=== PATIENT | female | born 1945 | race Caucasian/White ===

== ENCOUNTER 2018-10-06 07:24 | Inpatient (IN) | payer MEDICARE, SELFPAY ==
[2018-09-22 08:29] VITALS: BMI 23.6
[2018-10-06] VITALS (18 sets, daily range): BP systolic 110–146; BP diastolic 61–82; PULSE 62–85; RESP 8–21; TEMP 36.3–37.1; O2SAT 93–99; BMI 23.6
[2018-10-06] MEDS: LACTATED RINGERS 1,000 ML 42 ML IV ×3 (08:46→16:11)
--- NOTE | 2018-10-06 09:47 | PM.PREOP ---
Pre-operative Note Interval Note History & Physical reviewed/Exam performed by Physician: Yes Changes to H&P: No
[2018-10-06] MEDS: ALBUTEROL 2.5 MG/3 ML NEB (ADULT) INH (10:26)
[2018-10-06] MEDS: CEFAZOLIN 2 GM/100 ML FROZ.PIGGY IV ×3 (11:11→23:19)
--- NOTE | 2018-10-06 11:42 | SUR.OPER ---
Prone on spine table, head in foam head support, padded chest and pelvic supports, gel pad at knees, lower legs supported by pillows; nipples, genitalia and toes free of pressure, arms secured on foam padded arm boards at <90 degrees abduction. Tape over blanket at thigh secured to table.
[2018-10-06] MEDS: SODIUM CHLORIDE 0.9% 1,000 ML, GENTAMICIN 80 MG IRR (11:52)
[2018-10-06] MEDS: THROMBIN (BOVINE) 5,000 UNIT VIAL 5000 UNIT TOP (13:33)
[2018-10-06] MEDS: BUPIVACAINE 0.5% (PF) 4 ML, MORPHINE-PF 4 MG, BUTORPHANOL 1 MG, fentaNYL 100 MCG INJ (14:23)
[2018-10-06] MEDS: VANCOMYCIN 1,000 MG VIAL 1000 MG TOP (14:25)
--- NOTE | 2018-10-06 15:30 | DI.RAD.S_ITS ---
PROCEDURE: XR LUMBAR SPINE 2-3V INDICATIONS: L2-3, L3-4, L4-5 XLIF...L5-S1 TLIF TECHNIQUE: 3 views of the lumbar spine were acquired. COMPARISON: None. FINDINGS: Bones: 5 [id number] vertebrae are present. There is posterior lumbar fusion from L2-S1. Intervertebral spacer is present at L5-S1. Hardware appears intact and there is good anatomic alignment. No vertebral body compression fractures. No suspicious bony lesions. Soft tissues: Overlying bowel gas pattern is normal. No suspicious soft tissue calcifications. IMPRESSION: Posterior fusion as above. Dictated by: Meri Lawrence M.D. on 10/06/2018 at 15:44 Approved by: Meri Lawrence M.D. on 10/06/2018 at 15:45
--- NOTE | 2018-10-06 15:36 | SUR.OPER ---
Patient's bowden tube was under her left thigh while in prone position, so immediately postoperative, there is a red indentation remaining on her thigh.
--- NOTE | 2018-10-06 15:38 | PM.OP.1 ---
Operative Date/Time/Diagnoses Date of procedure: 10/06/18 Time of procedure: 15:38 Pre-op diagnosis: Lumbar stenosis with radiculopathy Lumbar spondylolisthesis Lumbar scoliosis Post-op diagnosis: same Procedure & Clinicians Procedure: L2-3, L3-4, L4-5 anterior fusion with cages L2-3, L3-4, L4-5 posterior fusion L5-S1 TLIF (post/post innerbody fusion) with cage L2 through S1 screws Iliac crest bone graft aspirate L4-5 laminectomy Use of microscope Placement of epidural catheter Same procedure as scheduled: Yes Indications: [age] year old female with intractable pain from stenosis. They had failed conservative management and requested operative intervention. Risks and benefits of surgery were discussed and appropriate consents were obtained. Surgeon: Tomer Leyva Medication Aide: Monserrat Tapia Anesthesia Type: General Operative Notes Findings: None Closure Type: primary Prosthetic devices, grafts, tissues, transplants, or devices: NuVasive XLIF cages and MAS Reline screws Globus Rise cage Applied: catheter Estimated Blood Loss (mL): 100 Blood products transfused: none Procedure in detail: Patient was brought to the operating room and intubated on the table. Time-out was performed. They were then rolled over to the lateral decubitus position with the [id number]. The table was bent and they were taped down in the correct position. X-rays were taken to confirm a true AP and lateral. Preoperative antibiotics were given. The left flank was prepped and draped in standard sterile fashion. Using fluoroscopy, a 3 cm incision was made above the iliac crest. We bluntly dissected down with Metzenbaum scissors and split the 3 abdominal muscle layers. We dissected out the retroperitoneal space and using finger guidance, brought our 1st dilator down to the psoas muscle. Using neuromonitoring and fluoroscopy, we placed it through the psoas onto the L4-5 disc space in an anterior position and gradually pulled the dilator posteriorly along the disc space. We placed our guidewire and measured our depth for the retractor. We then dilated with the next 2 dilators and then placed our retractor over the dilators. Position was confirmed with fluoroscopy and the retractor was locked down to the bar. We opened up the retractor and checked with neuro monitoring. We then placed the bere and again checked with neuro monitoring. The retractor was opened further and the ALL retractor was placed. An annulotomy was performed. We then performed a complete diskectomy with ring curette, pituitary, box osteotome. A Mcdaniel was advanced across the disc space under fluoroscopy to release the lateral annulus on the opposite side. We then used sequentially larger trials and confirmed under fluoroscopy. An XLIF cage was packed with Osteocel bone graft and impacted into the L4-5 disc space with fluoroscopy for the anterior fusion at this level. The wound was irrigated. The retractor was closed down. The bere was removed. We carefully removed the retractor with direct visualization to make sure there was no neurovascular or abdominal injury. We then moved up to the L3-4 level. Again we dilated through the psoas, placed our retractor, performed a complete diskectomy with lateral release, trialed and placed another cage with bone graft for the anterior fusion at L3-4. The retractor was carefully removed under direct visualization. We then moved up to the L2-3 level. Again we dilated through the psoas, placed a retractor, performed a complete diskectomy with lateral release, trialed, and placed another cage with bone graft for the anterior fusion at L2-3. The retractor was carefully removed under direct visualization. Final x-rays were taken. The muscle fascia was closed, superficial tissue was closed. The skin was closed. Sterile dressing was placed. The patient was then rolled over on the well-padded prone position on the Michael table. Using fluoroscopy for localization, a 15 cm incision was made to the right of the midline. Bovie used to come down to split the lumbodorsal fascia. We then percutaneously placed Jamshidi needles down the right pedicles of L2, L3, L4, L5, and S1 using fluoroscopy and neural monitoring. These were switched out over guidewires, tapped and then the appropriate screw shanks were placed. We opened up our retractors at L5-S1. The posterolateral gutter and medially were cleared out. A bur was used to decorticate the sacral ala and transverse process of L5. We then brought in the microscope. A laminectomy was performed at L5-S1 with a bur and Kerrison rongeurs. We carefully depressed the dura to reach to the opposite side and decompress the entire central canal. We cleared out the neural foramen. We had to do a near complete facetectomy to open up the foramen. In the end the ball probe could be placed cephalad and caudally across to the opposite side in the foramen and everything was opened. We then began the prep for the TLIF. The dura was carefully retracted medially and the disc was prepped. A scalpel used to perform an annulotomy. We then used a combination of paddles, Shonda, pituitaries, and curettes to perform a complete diskectomy at L5-S1. We packed the bone graft into the disc space. The globus Rise 10x30 mm cage was placed and expanded under fluoroscopic visualization. This completed the posterior interbody fusion portion of the TLIF at L5S1. We then moved the retractor up to L4-5. The soft tissue in the gutter were cleared off and the L4 transverse process was decorticated. We then performed a laminectomy at L4-5. There was a large facet cyst that had to be carefully dissected off the dura. We carefully depress the dura and reach to the opposite side to decompress the left side of the canal. In the end the ball probe could be swept cephalad, caudally, and out the neural foramen and everything was open. We had such good indirect foraminal decompression and height islam with our anterior procedure, that I did not think we needed to do the laminectomies at the upper 2 levels. Wound was irrigated. An epidural catheter was primed with 4mL of 0.5% bupivacaine, 100 mcg fentanyl, 4 mg Duramorph, 1 mg Stadol. The dura was depressed under the cephalad lamina with a ball probe and the epidural catheter was gently advanced 6 cm cephalad. We then continued our will see muscle-splitting approach and exposed the transverse processes of L4 and L3 and decorticated these with a bur as well. The wound was again irrigated. A small stab incision was made over the PSIS and a Jamshidi needle was placed into the iliac crest and several mL of bone marrow was aspirated. This was mixed with our locally harvested bone graft as well as the remaining Osteocell and placed in the posterolateral gutter for fusion at L2-3, L3-4, L4-5, and the posterolateral portion of the L5-S1 TLIF. We placed on the screw heads and then measured and placed a lance and locked down the set screws. The fascia was then closed. The epidural was then injected without resistance. The catheter was pulled and we closed more over the fascia. We then went to the left-hand side. Another 15 cm longitudinal incision was made. We split down through the fascia. We then percutaneously placed a Jamshidi needles on the left from L2 through S1 and then change him over to guidewires and tapped and placed our screws under fluoroscopic guidance and also using neuro monitoring. We measured and placed a lance and locked down. Final x-rays were taken. The wound was irrigated. The fascia was closed. Vancomycin powder was placed in the wounds. The superficial and skin were closed. Sterile dressing was placed. The patient was then rolled over, extubated, brought to the recovery room with no complications. Complications: none Condition: stable Disposition: PACU Plan for aftercare: Inpatient. Up with physical therapy.
--- NOTE | 2018-10-06 15:47 | P.OP_ITS ---
Operative Date/Time/Diagnoses Date of procedure: 10/06/18 Time of procedure: 15:38 Pre-op diagnosis: Lumbar stenosis with radiculopathy Lumbar spondylolisthesis Lumbar scoliosis Post-op diagnosis: same Procedure & Clinicians Procedure: L2-3, L3-4, L4-5 anterior fusion with cages L2-3, L3-4, L4-5 posterior fusion L5-S1 TLIF (post/post innerbody fusion) with cage L2 through S1 screws Iliac crest bone graft aspirate L4-5 laminectomy Use of microscope Placement of epidural catheter Same procedure as scheduled: Yes Indications: [age] year old female with intractable pain from stenosis. They had failed conservative management and requested operative intervention. Risks and benefits of surgery were discussed and appropriate consents were obtained. Surgeon: Tomer Leyva Tugboat Engineer: Monserrat Tapia Anesthesia Type: General Operative Notes Findings: None Closure Type: primary Prosthetic devices, grafts, tissues, transplants, or devices: NuVasive XLIF cages and MAS Reline screws Globus Rise cage Applied: catheter Estimated Blood Loss (mL): 100 Blood products transfused: none Procedure in detail: Patient was brought to the operating room and intubated on the table. Time-out was performed. They were then rolled over to the lateral decubitus position with the [id number]. The table was bent and they were taped down in the correct position. X-rays were taken to confirm a true AP and l ateral. Preoperative antibiotics were given. The left flank was prepped and draped in standard sterile fashion. Using fluoroscopy, a 3 cm incision was made above the iliac crest. We bluntly dissected down with Metzenbaum scissors and split the 3 abdominal muscle layers. We dissected out the retroperitoneal space and using finger guidance, brought our 1st dilator down to the psoas muscle. Using neuromonitoring and fluoroscopy, we placed it through the psoas onto the L4-5 disc space in an anterior position and gradually pulled the dilator posteriorly along the disc space. We placed our guidewire and measured our depth for the retractor. We then dilated with the next 2 dilators and then placed our retractor over the dilators. Position was confirmed with fluoroscopy and the retractor was locked down to the bar. We opened up the retractor and checked with neuro monitoring. We then placed the bere and again checked with neuro monitoring. The retractor was opened further and the ALL retractor was placed. An annulotomy was performed. We then performed a complete diskectomy with ring curette, pituitary, box osteotome. A Mcdaniel was advanced across the disc space under fluoroscopy to release the lateral annulus on the opposite side. We then used sequentially larger trials and confirmed under fluoroscopy. An XLIF cage was packed with Osteocel bone graft and impacted into the L4-5 disc space with fluoroscopy for the anterior fusion at this level. The wound was irrigated. The retractor was closed down. The bere was removed. We carefully removed the retractor with direct visualization to make sure there was no neurovascular or abdominal injury. We then moved up to the L3-4 level. Again we dilated through the psoas, placed our retractor, performed a complete diskectomy with lateral release, trialed and placed another cage with bone graft for the anterior fusion at L3-4. The retractor was carefully removed under direct visualization. We then moved up to the L2-3 level. Again we dilated through the psoas, placed a retractor, performed a complete diskectomy with lateral release, trialed, and placed another cage with bone graft for the anterior fusion at L2-3. The ret ractor was carefully removed under direct visualization. Final x-rays were taken. The muscle fascia was closed, superficial tissue was closed. The skin was closed. Sterile dressing was placed. The patient was then rolled over on the well-padded prone position on the Michael table. Using fluoroscopy for localization, a 15 cm incision was made to the right of the midline. Bovie used to come down to split the lumbodorsal fascia. We then percutaneously placed Jamshidi needles down the right pedicles of L2, L3, L4, L5, and S1 using fluoroscopy and neural monitoring. These were switched out over guidewires, tapped and then the appropriate screw shanks were placed. We opened up our retractors at L5-S1. The posterolateral gutter and medially were cleared out. A bur was used to decorticate the sacral ala and transverse process of L5. We then brought in the microscope. A laminectomy was performed at L5-S1 with a bur and Kerrison rongeurs. We carefully depressed the dura to reach to the op posite side and decompress the entire central canal. We cleared out the neural foramen. We had to do a near complete facetectomy to open up the foramen. In the end the ball probe could be placed cephalad and caudally across to the opposite side in the foramen and everything was opened. We then began the prep for the TLIF. The dura was carefully retracted medially and the disc was prepped. A scalpel used to perform an annulotomy. We then used a combination of paddles, Shonda, pituitaries, and curettes to perform a complete diskectomy at L5-S1. We packed the bone graft into the disc space. The globus Rise 10x30 mm cage was placed and expanded under fluoroscopic visualization. This completed the posterior interbody fusion portion of the TLIF at L5S1. We then moved the retractor up to L4-5. The soft tissue in the gutter were cleared off and the L4 transverse process was decorticated. We then performed a laminectomy at L4-5. There was a large facet cyst that had to be carefully dissected off the dura. We carefully depress the dura and reach to the opposite side to decompress the left side of the canal. In the end the ball probe could be swept cephalad, caudally, and out the neural foramen and everything was open. We had such good indirect foraminal decompression and height pentecostal with our anterior procedure, that I did not think we needed to do the laminectomies a t the upper 2 levels. Wound was irrigated. An epidural catheter was primed with 4mL of 0.5% bupivacaine, 100 mcg fentanyl, 4 mg Duramorph, 1 mg Stadol. The dura was depressed under the cephalad lamina with a ball probe and the epidural catheter was gently advanced 6 cm cephalad. We then continued our will see muscle-splitting approach and exposed the transverse processes of L4 and L3 and decorticated these with a bur as well. The wound was again irrigated. A small stab incision was made over the PSIS and a Jamshidi needle was placed into the iliac crest and several mL of bone marrow was aspirated. This was mixed with our locally harvested bone graft as well as the remaining Osteocell and placed in the posterolateral gutter for fusion at L2-3, L3-4, L4-5, and the posterolateral portion of the L5-S1 TLIF. We placed on the screw heads and then measured and placed a lance and locked down the set screws. The fascia was then closed. The epidural was then injected without resistance. The catheter was pulled and we closed more over the fascia. We then went to the left-hand side. Another 15 cm longitudinal incision was made. We split down through the fascia. We then percutaneously placed a Jamshidi needles on the left from L2 through S1 and then change him over to guidewires and tapped and placed our screws under fluoroscopic guidance and also using neuro monitoring. We measured and placed a lance and locked down. Final x- rays were taken. The wound was irrigated. The fascia was closed. Vancomycin powder was placed in the wounds. The superficial and skin were closed. Sterile dressing was placed. The patient was then rolled over, extubated, brought to the recovery room with no complications. Complications: none Condition: stable Disposition: PACU Plan for aftercare: Inpatient. Up with physical therapy.
[2018-10-06] MEDS: HYDROMORPHONE 2 MG INJ 0.5 MG IV ×4 (15:56→16:34)
[2018-10-06] MEDS: hydrOXYzine 50 MG/ML INJ 25 MG IM (16:04)
[2018-10-06] MEDS: LORazepam 2 MG/ML SYRINGE 0.25 MG IV (16:13)
--- NOTE | 2018-10-06 16:44 | SUR.PHASEI ---
o2sat dropping to 88-93% RA while dozing, 2lNC applied, sats 94%.
--- NOTE | 2018-10-06 17:34 | SUR.PHASEI ---
Pt transferred to the floor with o2 monitor. Report to Tyra. VS stable. IV saline locked. DRSGs checked with RN. Belongings bag with patient.
[2018-10-06] MEDS: LACTATED RINGERS 1,000 ML 125 ML IV (18:03)
[2018-10-06] MEDS: HYDROMORPHONE 0.5 MG INJ IV (18:04)
[2018-10-06] MEDS: hydrOXYzine pamoate 25 MG CAPSULE PO (20:19)
[2018-10-06] MEDS: DOCUSATE 100 MG CAPSULE PO (20:19)
[2018-10-06] MEDS: SENNOSIDES 8.6 MG TABLET 17.2 MG PO (20:19)
[2018-10-06] MEDS: HYDROCODONE/ACET 5/325 TABLET 2 TAB PO (20:20)
[2018-10-06] MEDS: GABAPENTIN 300 MG CAPSULE PO (20:22)
--- NOTE | 2018-10-06 21:31 | PC.ADMIT ---
1734- pt arrived to floor Admission Note: Pt awake and appropriate. Pt oriented to room and hospital procedures. Pt uses call light. not yet up. still dulled sensation to t9 and below. discussed and educated pt about what this means. scds applied to prashanth calf. 1899- pt up with 2 assistance for first time. needs one assist with walker to BR. did very well. encouraged small steps and pointing toe. discussed measures to use walker as well. voided adequately. did very well up. denied sob.dizziness/etc. will continue to monitor. pt calls appropriately.
--- NOTE | 2018-10-06 22:06 | PC.ADMIT ---
Admission Note: pt arrived to floor at 1735- pt sleepy. arouses but takes her time to answer questions. pt groggy stil. Pt complains of back pain. given meds pre MAR. prashanth Foot SCDs on. vss. oriented to room and hospital procedures. bed alarm on. side rails upx3. for pt safety. kal patent. 1899-pt ate some dinner. states she eats whenever she feels hungry. states she may want a snack later on. denies nausea. prn pain meds given. will continue to monitor. pulse ox on. 99-95% on room air.
[2018-10-07] VITALS (7 sets, daily range): BP systolic 102–122; BP diastolic 57–69; PULSE 70–76; RESP 16–17; TEMP 37.1–37.4; O2SAT 93–99
--- NOTE | 2018-10-07 02:01 | PC.NURSE ---
Patient is alert and oriented and very talkative once awake. Is deaf in right ear. Breath sounds CTA with RA sat of 99%; on continuous pulse oximetry. HRR. Denies nausea. BT hypoactive; denies flatus. Indwelling catheter is patent with clear reyna urine in bag. Able to turn, log rolling, onto side and tolerated well but preferring to lie on back. States pain is 3/10 and tolerable; declines offer of pain medication. Dressings to back and left hip is CDI. CMS is intact. Wearing bilateral foot SCD's. Reports 1 fall in past 3 months so is high risk for falling and bed alarm is activated.
[2018-10-07] MEDS: LACTATED RINGERS 1,000 ML 125 ML IV (03:00)
[2018-10-07 06:16] LABS: Hematocrit 34.9 % (36-46); Hemoglobin 12.1 g/dL (12.0-16.0)
[2018-10-07] MEDS: CEFAZOLIN 2 GM/100 ML FROZ.PIGGY IV (06:45)
--- NOTE | 2018-10-07 08:03 | PM.PNPO.1 ---
Subjective Date Patient Seen: 10/07/18 Time Patient Seen: 08:03 Interval history: She is doing very well. Some pain in the back. The right leg symptoms are feeling noticeably better. Her left leg feels heavy in the thigh. Exam Vital Signs (past 8 hours): - 10/07/18 00:04 10/07/18 05:27 Temperature 99.3 F 98.8 F Pulse Rate 75 76 Respiratory Rate 16 16 Blood Pressure 115/67 116/68 Pulse Oximetry 99 95 Oxygen Delivery Method Room Air Oxygen Flow Rate 0 Const Orientation: alert and oriented x3 Back/Spine/Pelvis Other: CDI. 5/5 motor both lower extremities except for 4/5 left hip flexor Objective Labs Result Diagrams: 10/07/18 05:43 Labs: Laboratory Results - last 24 hr 10/07/18 05:43 Hgb 12.1 Hct 34.9 L Assessment & Plan Post-op Postoperative Procedures Operation Date: 10/06/18 10:15 Actual Procedures Side Surgeon p L2-3,L3-4,L4-5,L5-S1 Laminictomy & Ant/Post Instru fusion w/bone graft Tomer Leyva MD She is doing very well. I explained the heaviness and weakness into the left hip flexor is coming from the psoas splitting approach and should resolve over the next several weeks. Mobilize today with physical therapy. Quality VTE Deep Vein Thrombosis/Pulmonary Embolism Present on Admission: No
[2018-10-07] MEDS: HYDROCODONE/ACET 5/325 TABLET 1 TAB PO ×2 (08:21→16:39)
[2018-10-07] MEDS: CELECOXIB 200 MG CAPSULE PO ×2 (08:22→21:37)
[2018-10-07] MEDS: DOCUSATE 100 MG CAPSULE PO ×2 (08:22→21:37)
[2018-10-07] MEDS: FLUTICASONE/SALMETEROL 250/50 14 PUFF DISKUS INH ×2 (08:45→21:18)
--- NOTE | 2018-10-07 11:30 | OT.IP.EVAL ---
Current Diagnoses Other forms of scoliosis, lumbar region (10/06/18) Spondylolisthesis, lumbar region (10/06/18) Spinal stenosis, lumbar region with neurogenic claudication (10/06/18) Surgery Performed Operation Date: 10/06/18 10:15 Actual Procedures p L2-3,L3-4,L4-5,L5-S1 Laminictomy & Ant/Post Instru fusion w/bone graft - Tomer Leyva MD Past Medical History (Last Updated 09/22/18 @ 09:17 by Esther Chadwick RN) Back pain (Acute) COPD (chronic obstructive pulmonary disease) (Acute) Coma (Acute) Hypoglycemia (Acute) Surgical History (Last Updated 09/22/18 @ 08:34 by Esther Chadwick RN) History of surgery of head (Acute) Hx of cervical spine surgery (Acute ~01/2018) Occupational Therapy Inpatient Evaluation/Re-Eval M1 PT/OT-IP Prior Functional Status Start: 10/07/18 12:36 Freq: NEEDED Status: Active Protocol: Document 10/07/18 11:30 PJM (Rec: 10/07/18 16:16 PJ [id number]) Medical Review Prior Functional Status Medical History Reviewed Yes Diet/Fluid Consistency Regular Communication Able to make needs known, no communication deficits noted Mobility and Gait Pt was independent at home and community without using AD. Was able to amb approx 300 ft a day and went to visit families in [place] sometimes. She also drives Activities of Daily Living and IADL's Pt was independent with ADLs and IADLs without AD Prior Functional Level (Other details) Pt has 2 small dogs. Social History Household Members none Living Arrangements House Number of Floors (Floors) One Floor Number of Stairs To Enter/Railing? 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 M2 OT-IP Current Condition Start: 10/07/18 16:02 Freq: Status: Active Protocol: Document 10/07/18 11:30 PJM (Rec: 10/07/18 16:16 PJ [email or web address]) Occupational Therapy Current Condition Current Condition Evaluation Date 10/07/18 Treatment Diagnosis decreased self care, mobility s/p elective L2-5 ant/post fusion, L5-S1 TLIF Diagnosis Onset Date 10/06/18 Post Operative Precautions Lumbar Precautions Log Roll No Twisting Limit Bending Lifting Restriction of 10 lbs Gait Belt above Incisional Area M3 OT- IP Subjective and Pain Start: 10/07/18 16:02 Freq: Status: Active Protocol: Document 10/07/18 11:30 PJM (Rec: 10/07/18 16:16 PJ [email or web address]) OT- Subjective Occupational Therapy Visit Type Type Initial Evaluation Visit Start Time 11:03 Visit Stop Time 11:30 Total Visit Minutes 27 Occupational Therapy Visit Comments Patient Comments I plan to be very careful because I don't ever want to have back surgery again. Patient/Caregiver Goals to go home and return to independent living alone OT Pain Assessment Pain When Pain Assessed After Treatment Pain Present Pain Present Pain Reported Location Lower Back Intensity 6 Scale Used Numeric (1 - 10) Description Aching Acute Pain Behaviors Guarding Management Techniques Distraction Re-positioning Timing of Activity with Medications M4 OT- IP ADL's Start: 10/07/18 16:02 Freq: Status: Active Protocol: Document 10/07/18 11:30 PJM (Rec: 10/07/18 16:16 [facility] [email or web address]) OT [id number] General Evaluation Self-Feeding Ability Independent OT ADL-Grooming General Evaluation Grooming Ability Standby Assistance Comments OT Grooming Comments after set up in chair OT ADL-Oral Care General Eval Oral Care Ability Standby Assistance Comments Oral Care Comments after set up in chair OT ADL-Dressing General Eval Upper Body Dressing Ability Independent Lower Body Dressing Ability Moderate Assistance Areas Needing Assistance Underpants/Brief Socks Shoes Assistive Devices Dressing Assistive Devices Master Pilot Comments OT Dressing Comments hand candle molder provided at pt request, she adamantly declines sock aid and long shoe horn as she never wears socks and wears [place] slip on shoes only OT ADL-Toileting General Evaluation Toileting Ability Total Assistance Areas Needing Assistance Empty Catheter or Colostomy Comments OT Toileting Comments to be assessed, bowden still in place OT ADL-Bathing Bathing Type Bathing Type Shower Devices Bathing Equipment Long Handled Sponge or Bookkeepers Supervisor Held Shower Sprayer Comments OT Bathing Comments to be assessed, pt usually stands to shower M5 OT- IP IADL's Start: 10/07/18 16:02 Freq: Status: Active Protocol: Document 10/07/18 11:30 PJM (Rec: 10/07/18 16:16 PJM [email or web address]) OT-Instrumental Activities of Daily Living Deficits IADL Deficits Identified Deficits Home Safety Awareness Awareness of Need for Assistance at Home Good Awareness Ability to Problem Solve Emergency Able to Problem Solve Situations Medication Management Medication Management No Deficits Identified Money Management Money Management No Deficits Identified Meal Preparation Meal Preparation Caregiver Provides Assist Meal Preparation Comments friend can assist with grocery shopping PRN, pt stocked her freezer with easy to prepare foods prior to admit Pole Peeling Machine Operator Pole Peeling Machine Operator Caregiver Provides Assist Pole Peeling Machine Operator Comments friend to assist PRN per pt Driving Driving Caregiver Provides Assist Driving Comments friend to assist PRN per pt M6 OT- IP Functional Cognition Start: 10/07/18 16:02 Freq: Status: Active Protocol: Document 10/07/18 11:30 PJM (Rec: 10/07/18 16:16 PJM [email or web address]) Cognitive Factors Limiting Selfcare Function Cognitive Ability Level of Alertness Alert Patient Orientation Name Age Birthday Month Date Year Day of Week Place Situation Attention Span Ability Capable of Focused Attention Capable of Sustained Attention Ability to Follow Commands Able to Follow One Step Commands Memory Description No Deficits Noted Safety Awareness Decreased Ability to Apply Precautions Underestimates Need for Assistance Problem Solving Ability Needs Assist to Identify Solutions Cognitive Comments Cognitive Assessment Comments Pt has some decreased insight re: how lumbar precautions will affect her ability to be independent while home alone. She tends to underestimate her need for assistance. OT- Vision and Hearing OT- Hearing Assessment OT- Hearing Assessment WFL OT- Vision Assessment Visual Acuity WFL M7 OT- IP Mobility and Balance Start: 10/07/18 16:02 Freq: Status: Active Protocol: Document 10/07/18 11:30 PJM (Rec: 10/07/18 16:16 PJ [email or web address]) OT-Transfer Assessment Comments Mobility Comments Pt seen in recliner this session just after P.T. finished. See P.T. notes. OT- Gait Assessment Comments Gait Ability Comments Pt seen in recliner this session just after P.T. finished. See P.T. notes. OT- Balance Assessment Comments Other Balance Tests/Deviations/Treatment see P.T. notes : M8 OT- IP Objective Assessments Start: 10/07/18 16:02 Freq: Status: Active Protocol: Document 10/07/18 11:30 PJM (Rec: 03/27/19 16:16 PJM [email or web address]) OT Gross Range of Motion Upper Extremity Range of Motion Assessment Within Functional Limits OT Strength Upper Extremity Strength Assessment Within Functional Limits OT- Coordination Assessment Comments Coordination Comments BUE WFL for self care OT-Muscle Tone Assessment Muscle Tone WNL Yes OT Sensation Assessment Comments Summary Comments BUE WNL per pt Edema Edema Absent M9 OT- IP Assessment and Plan Start: 10/07/18 16:02 Freq: Status: Active Protocol: Document 10/07/18 11:30 PJM (Rec: 10/07/18 16:16 PJM [email or web address]) OT Summary Assessment and Plan Potential Rehabilitation Potential Good Analytic Complexity at Evaluation Low Summary OT Impairments Pain Functional Mobility Grooming Dressing Toileting Bathing Toilet Transfers Shower Transfers Assessment Summary Low complexity OT assessment completed with emphasis on self care skills withing lumbar spine precautions after elective L2-S1 lumbar fusion. Pt presents with performance deficits in all functional mobility/transfers, standing grooming, lower body dressing, bathing and toileting. She tends to overestimate her abilities with some decreased insight noted. Pt lives alone but has arranged for friend to assist with dog care and other IADLS PRN. Anticipate pt will be able to d/c home when medically stable and clears P.T. Goals Grooming Goal Independent Dressing Goal Independent Master Pilot Toileting Goal Independent Bathing Goal Independent Grab Bars Hand Held Shower Sprayer Long Handled Sponge or [place] Toilet Transfer Goal Independent Shower Transfer Goal Independent Patient/Caregiver Education Goal Demonstrate Post-Op Precautions Demonstrate Energy Conservation and Pacing OT-Other Goals Grooming to be done standing at sink with good body mechanics and safety awareness . Days to Meet Goals 2 Frequency of Treatment Frequency Of Treatment Once a Day Treatment Plan OT Treatment Plan ADL Training Functional Mobility Patient/Family Education Discharge Planning Discharge Recommendations OT Discharge Recommendations Home with Assistance Home Equipment Needs shower chair ?
--- NOTE | 2018-10-07 11:33 | PC.NURSE ---
Pt ambulated with PT and worked with OT. She is a one person assist to get out of bed and PT states that she will need two people to get her back to bed, as she is having some difficulties lifting her legs back up to the bed. Given 1 vicodin with good pain control. Pt is sitting upright in her chair. She is enjoying a cup of coffee and resting comfortably.
--- NOTE | 2018-10-07 12:58 | PT.IIE ---
Current Diagnoses Other forms of scoliosis, lumbar region (10/06/18) Spondylolisthesis, lumbar region (10/06/18) Spinal stenosis, lumbar region with neurogenic claudication (10/06/18) Surgery Performed Operation Date: 10/06/18 10:15 Actual Procedures p L2-3,L3-4,L4-5,L5-S1 Laminictomy & Ant/Post Instru fusion w/bone graft - Tomer Leyva MD Surgical History (Last Updated 09/22/18 @ 08:34 by Esther Chadwick RN) History of surgery of head (Acute) Hx of cervical spine surgery (Acute ~01/2018) Medical History (Last Updated 09/22/18 @ 09:17 by Esther Chadwick RN) Back pain (Acute) COPD (chronic obstructive pulmonary disease) (Acute) Coma (Acute) Hypoglycemia (Acute) Physical Therapy Inpatient Evaluation/Re-Eval M1 PT/OT-IP Prior Functional Status Start: 10/07/18 12:36 Freq: NEEDED Status: Active Protocol: Document 10/07/18 10:10 (Rec: 10/07/18 12:58 [email or web address]) Medical Review Prior Functional Status Medical History Reviewed Yes Diet/Fluid Consistency Regular Communication Able to make needs known, no communication deficits noted Mobility and Gait Pt was independent at home and community without using AD. Was able to amb approx 300 ft a day and went to visit families in [place] sometimes. She also drives Activities of Daily Living and IADL's Pt was independent with ADLs and IADLs without AD Social History Household Members none Living Arrangements House Number of Floors (Floors) One Floor Number of Stairs To Enter/Railing? 2 TIFFANY with R railing Home Environment Standard Height Toilet Walk in Shower Home Equipment Grab Bars In Shower Employment Status Retired Additional Social History Comment Pt lives alone in a studio in [place]. Pt was independent for all ADLs and IADLs prior to surgery. Pt stated her mobility has been decreased due to increased back pain. Pt injured her back since 1.5 years ago after she fell since one of her horse ran over her. Since then, pt started experienced severe back pain with radiating pain and numbness to her R LE. Pt expected to be d/c home and she already scheduled for therapy to follow up with her. M2 PT-IP Current Condition Start: 10/07/18 12:36 Freq: NEEDED Status: Active Protocol: Document 10/07/18 10:10 (Rec: 10/07/18 12:58 [email or web address]) Physical Therapy Current Condition Current Condition Evaluation Date 10/07/18 Treatment Diagnosis L2-L5 XLIF, L5-S1 TLIF, imparied gait and activity tolerance Onset Date 10/06/18 Precautions Lumbar Precautions Log Roll No Twisting Limit Bending Lifting Restriction of 10 lbs Gait Belt above Incisional Area Weight Bearing Status Weight Bearing Status Weight Bear as Tolerated M3 PT-IP Subjective Start: 10/07/18 12:36 Freq: NEEDED Status: Active Protocol: Document 10/07/18 10:10 (Rec: 10/07/18 12:58 [email or web address]) Subjective Physical Therapy Visit Type Type Initial Evaluation Visit Start Time 10:10 Visit Stop Time 10:45 Total Visit Minutes 35 Number of MD PHYSICIAN DERMATOLOGIST Visits 0 Physical Therapy Visit Comments Patient Comments Pt agreeable to mobilize with PT Patient Goals To return home and participate with PT. Therapy Pain Assessment Pain When Pain Assessed During Mobility Pain Present Pain Present Pain Reported Location Lower Back Intensity 5 Scale Used Numeric (1 - 10) Description Acute Pain Management Techniques Apply Cold Modification of Treatment Re-positioning Timing of Activity with Medications M4 PT-IP Mobility and Gait Start: 10/07/18 12:36 Freq: NEEDED Status: Active Protocol: Document 10/07/18 10:10 (Rec: 10/07/18 12:58 [email or web address]) PT-Bed Mobility Assessment Rolling Type of Rolling Log Rolling Roll to Left Level of Assist Minimal Assistance 1 Person Assistance Supine to Sit Supine to Sit Moderate Assistance 1 Person Assistance Bedrails Scooting Scooting to Edge of Bed Contact Guard Assistance Scooting Up and Down in Bed Contact Guard Assistance PT-Transfer Assessment Sit to and From Stand Sit to and from Stand Minimal Assistance Use of Upper Extremities Equipment Transfer Assistive Device Bed Rail Gait Belt Front Wheeled Walker Transfers Transfer Destination Bed Chair Transfer Technique Stand Step Pivot Transfer Ability Level of Assist Minimal Assistance Comments Mobility Comments BP 120s /60s HR 80s during session Pt was in bed upon assessment, she was able to use log roll to sit EOB but with mod A x 2, especially pivot her L leg. Pt stood up multiple times from chair / bed with CGA/min A FWW. Pt sated It feels good to stand up and not much radiating pain /numbness to my leg. Gait Assessment Gait Gait Assistance Required: Contact Guard Assist Distance (Feet) 20 Able to Maintain Weight Bearing Status Yes During Gait Assistive Devices Assistive Device None Gait Belt Front Wheeled Walker Orthotic/Prosthetic Devices or Brace: No Gait Deviations General Gait Pattern Decreased Stride Length Decreased Feet Clearance Step-to Gait Factors Limiting Gait Function Factors Limiting Gait Function Decreased Activity Tolerance Decreased Strength Limited Range of Motion Pain Poor Balance Respiratory Distress Comments Gait Comments Pt amb around the room and returned back to chair for a total 20 feet with FWW CGA. Pt presents very steady gait and no signs of LOB. Pt's overall mobility is very slow and cautious with a step to gait. Pt requested to rest due to weakness on LEs after 15 feet of amb. Stair Climbing Assessment Comments Stair Climbing Comments did not attempt due to fatigue PT-Balance Assessment Sitting Balance and Reactions Static Sitting Balance Ability Normal Dynamic Sitting Balance Ability Normal Standing Balance and Reactions Static Standing Balance Ability Good Dynamic Standing Balance Ability Good Device Used FWW M5 PT-IP Objective Assessments Start: 10/07/18 12:36 Freq: NEEDED Status: Active Protocol: Document 10/07/18 10:10 (Rec: 10/07/18 12:58 [email or web address]) Orientation Orientation/Cognition Level of Alertness Alert Orientation Name Age Birthday Month Date Year Day of Week Place Situation Language Function Ability No Deficits Noted Safety Awareness Understands Safety Issues Memory Description No Deficits Noted Gross Range of Motion Upper Extremity ROM Assessment Within Functional Limits Lower Extremity ROM Assessment Left Impaired Impairments hip flexion ~40-50 degrees Strength Upper Extremity Strength Assessment Within Functional Limits Lower Extremity Strength Assessment Left Impaired Hip 3/5 Knee 4/5 Ankle 4/5 Coordination Assessment Gross Coordination Gross Coordination WNL Sensation Assessment Sensation Gross Sensation WNL Right LE Impaired Light Touch Impaired Proprioception (Position) Intact Sensation Description Numbness Comments Sensation Comments pt stated slight decreased sensitivity to LT on R lateral foot Muscle Tone Muscle Tone WNL Yes M6 PT-IP Treatment Start: 10/07/18 12:36 Freq: NEEDED Status: Active Protocol: Document 10/07/18 10:10 (Rec: 10/07/18 12:58 [email or web address]) Physical Therapy Treatment Exercises Exercises Gluteal Sets Quad Sets Education Education Provided Precautions Weight Bearing Status Post-Op Packet Safety M7 PT-IP Assessment and Plan Start: 10/07/18 12:36 Freq: NEEDED Status: Active Protocol: Document 10/07/18 10:10 (Rec: 10/07/18 12:58 [email or web address]) PT Summary Assessment and Plan Potential Rehabilitation Potential Good Status of Condition at Evaluation Stable Summary Impairments Pain ROM Strength Sensation Bed Mobility Transfers Gait Activity Tolerance Assessment Summary Pt is a pleasant 73 yo female POD#2 L2-L5 XLIF and L5-S1 TLIF. Upon assessment, pt was able to recall BLT precautions 3/3. She performed log roll, bed mobility with mod A x 1 and overall transfer and amb with 1pa CGA FWW. Pt was very slowly for overall mobility due to pain and fatigue. Pt is currently far from baseline, in addition, pt lives alone with 2 TIFFANY. Pt also does not have any assistive device at home which create fall risks. Pt will benefit from short term SNF to improve mobility unless patient is able to reach all her rehab goals in order to be d/c home safely with HH. Goals Bed Mobility Goal Independent Transfer Goal Independent Front Wheeled Walker Gait Goal Independent Front Wheel Walker Gait Distance 300 Other Goals climb 3 steps with R railing Days to Meet Goals 5 Frequency of Treatment Frequency Of Treatment Twice a Day Treatment Plan Physical Therapy Treatment Plan Bed Mobility Training Transfer Training Gait Training Therapeutic Exercise Balance Retraining Post Op Education Discharge Planning Hot or Cold Pack Other Recommendations and Next Treatment transfer and gait training as Focus margi stair climbing if possible 3 steps with R railing review precautions Recommendations To Nursing Amount of Assist Needed 1 Person Assist Discharge Recommendations PT Discharge Recommendations Home Home Health SNF Rehab Other Discharge Recommendations Pt will benefit from short term SNF to improve mobility unless patient is able to reach all her rehab goals in order to be d/c home safely with HH. Equipment Needed for Home Before FWW, shower seat, leg brick or block maker, Discharge long handled shoe horn, raised toilet seat with armrest.
--- NOTE | 2018-10-07 13:57 | CM.DANOTE ---
Patient is a 73 year old female who was admitted on 10/06/18 for Lat Int Fusion/Lami. Pt has MCR for insurance and her PCP is Dr. Caleb Caban. EMR was reviewed. Per Ortho, pt making progress and to continue working with therapy and not stable for d/c yet today. Per RN, pt was a 2PA to bed today but motivated. SW met bedside with pt and explained role and updated white board and pt confirms that she lives at home alone in [facility] and is quite Independent at baseline and has pets and a horse and property. Pt denies any hx of HH or SNF but states that prior to surgery she discussed likely need of HH at d/c with MD. Pt already contacted [facility] prior to admit and this would be her preference. Pt has set up care by her neighbors for her pets and house and some assist if needed at d/c. Pt preference is home with HH RN/PT/ACCOUNTING LECTURER and pt is very driven and motivated person and a strong sense of independence. SW called [facility] with new referral and CRISTINO Boateng faxed clinicals for review. Plan: SW to follow closely to confirm pt will be safe for d/c home alone with HH when stable. SW to confirm that [facility] can open the pt to service at d/c. MONET Ledesma Discharge Planning/Care Management CM Discharge Assessment Start: 10/07/18 13:54 Freq: Status: Active Protocol: Document 10/07/18 13:55 BF (Rec: 10/07/18 13:57 BF [id number]) Discharge Planning Assessment Assigned Adult Neuropsychologist MONET Ochoa DPOA/Assigned Designee Name none Advance Directives? No History Provided By Patient Medical Record Has Patient been admitted in last 30 No days? Prior Living Arrangements House Household Members none Type of transporation used prior to Drives own vehicle admit Comment Lives at home alone and is very independent with dogs and horse Independent with ADL's Yes Is patient alert and oriented? Yes Caregiver for Another No DME Already Rented / Owned FWW / Walker Patient/Family Preference Home with Home Health Comment Preference is [facility] RN/PT/ ACCOUNTING LECTURER Barriers to Discharge No Discharge Plan Home with Home Health Referrals Initiated Home Health Medicare Choice List Provided Yes SNF/HH Preference [facility] Has Agency SNF been contacted Yes Whiteboard Updated in Patient Room with Yes name and ext. # of Adult Neuropsychologist Review Status In Process Please Provide Date Initial DC 10/07/18 Assessment Was Performed Next Review Type Continued Stay Review
--- NOTE | 2018-10-07 14:22 | CM.DPC ---
DCP Cont: Faxed referral to [facility] at fax # [phone]. Fax confirmation scanned in. Tasneem Perez, Care Swatch Paster
--- NOTE | 2018-10-07 14:45 | PT.IPTN ---
Current Diagnoses Other forms of scoliosis, lumbar region (10/06/18) Spondylolisthesis, lumbar region (10/06/18) Spinal stenosis, lumbar region with neurogenic claudication (10/06/18) Surgery Performed Operation Date: 10/06/18 10:15 Actual Procedures p L2-3,L3-4,L4-5,L5-S1 Laminictomy & Ant/Post Instru fusion w/bone graft - Tomer Leyva MD Physical Therapy Treatment Note M2 PT-IP Current Condition Start: 10/07/18 12:36 Freq: NEEDED Status: Active Protocol: Document 10/07/18 10:10 (Rec: 10/07/18 12:58 [id number]) Physical Therapy Current Condition Current Condition Evaluation Date 10/07/18 Treatment Diagnosis L2-L5 XLIF, L5-S1 TLIF, imparied gait and activity tolerance Onset Date 10/06/18 Precautions Lumbar Precautions Log Roll No Twisting Limit Bending Lifting Restriction of 10 lbs Gait Belt above Incisional Area Weight Bearing Status Weight Bearing Status Weight Bear as Tolerated M3 PT-IP Subjective Start: 10/07/18 12:36 Freq: NEEDED Status: Active Protocol: Document 10/07/18 14:30 GGD (Rec: 10/07/18 14:45 GGD [email or web address]) Subjective Physical Therapy Visit Type Type Treatment Note Visit Start Time 14:00 Visit Stop Time 14:30 Total Visit Minutes 30 Number of ROVING CAN TENDER Visits 1 Physical Therapy Visit Comments Patient Comments Pt willing to get up and walk. Therapy Pain Assessment Pain When Pain Assessed During Mobility Pain Present Pain Present Pain Reported M4 PT-IP Mobility and Gait Start: 10/07/18 12:36 Freq: NEEDED Status: Active Protocol: Document 10/07/18 14:30 GGD (Rec: 10/07/18 14:45 GGD [email or web address]) PT-Bed Mobility Assessment Rolling Type of Rolling Log Rolling Roll to Left Level of Assist Standby Assistance Supine to Sit Supine to Sit Standby Assistance Bedrails Sit to Supine Sit to Supine Minimal Assistance 1 Person Assistance Scooting Scooting to Edge of Bed Contact Guard Assistance Scooting Up and Down in Bed Contact Guard Assistance PT-Transfer Assessment Sit to and From Stand Sit to and from Stand Contact Guard Assistance Use of Upper Extremities Equipment Transfer Assistive Device Gait Belt Front Wheeled Walker Transfers Transfer Destination Bed Toilet Transfer Ability Level of Assist Minimal Assistance Gait Assessment Gait Gait Assistance Required: Contact Guard Assist Distance (Feet) 400 Able to Maintain Weight Bearing Status Yes During Gait Assistive Devices Assistive Device None Gait Belt Front Wheeled Walker Orthotic/Prosthetic Devices or Brace: No Gait Deviations General Gait Pattern Decreased Stride Length Decreased Feet Clearance Step-to Gait Factors Limiting Gait Function Factors Limiting Gait Function Decreased Activity Tolerance Decreased Strength Limited Range of Motion Pain Poor Balance Respiratory Distress Stair Climbing Assessment Evaluation Level of Assist On Stairs Contact Guard Assistance Devices Stair Climbing Assistive Devices Left Railing Right Railing Technique/Endurance Stair Climbing Direction Ascend and Descend Stair Climbing Technique Step to Step Number of Steps Climbed 3 Query Text: Stair Climbing Set # Repetitions (reps) 1 M5 PT-IP Objective Assessments Start: 10/07/18 12:36 Freq: NEEDED Status: Active Protocol: Document 10/07/18 10:10 HH (Rec: 10/07/18 12:58 [email or web address]) Orientation Orientation/Cognition Level of Alertness Alert Orientation Name Age Birthday Month Date Year Day of Week Place Situation Language Function Ability No Deficits Noted Safety Awareness Understands Safety Issues Memory Description No Deficits Noted Gross Range of Motion Upper Extremity ROM Assessment Within Functional Limits Lower Extremity ROM Assessment Left Impaired Impairments hip flexion ~40-50 degrees Strength Upper Extremity Strength Assessment Within Functional Limits Lower Extremity Strength Assessment Left Impaired Hip 3/5 Knee 4/5 Ankle 4/5 Coordination Assessment Gross Coordination Gross Coordination WNL Sensation Assessment Sensation Gross Sensation WNL Right LE Impaired Light Touch Impaired Proprioception (Position) Intact Sensation Description Numbness Comments Sensation Comments pt stated slight decreased sensitivity to LT on R lateral foot Muscle Tone Muscle Tone WNL Yes M6 PT-IP Treatment Start: 10/07/18 12:36 Freq: NEEDED Status: Active Protocol: Document 10/07/18 14:30 GGD (Rec: 10/07/18 14:45 GGD [email or web address]) Physical Therapy Treatment Education Education Provided Precautions Safety M7 PT-IP Assessment and Plan Start: 10/07/18 12:36 Freq: NEEDED Status: Active Protocol: Document 10/07/18 14:30 GGD (Rec: 10/07/18 14:45 GGD [email or web address]) PT Summary Assessment and Plan Summary Assessment Summary Pt is improving with mobility. She was able to progress gait and stair mobility. She did need min A with LE for bed mobility. When medically stable safe for home D/C. Frequency of Treatment Frequency Of Treatment Twice a Day Treatment Plan Physical Therapy Treatment Plan Bed Mobility Training Transfer Training Gait Training Therapeutic Exercise Balance Retraining Post Op Education Discharge Planning Hot or Cold Pack Other Recommendations and Next Treatment transfer and gait training as Focus margi stair climbing if possible 3 steps with R railing review precautions Recommendations To Nursing Amount of Assist Needed 1 Person Assist Discharge Recommendations PT Discharge Recommendations Home with Assistance Home Health
--- NOTE | 2018-10-07 16:17 | PC.NURSE ---
pt reported bowden was removed this afternoon no issues r/t bowden removal. per patient.
[2018-10-07] MEDS: SENNOSIDES 8.6 MG TABLET 17.2 MG PO (21:37)
[2018-10-07] MEDS: GABAPENTIN 300 MG CAPSULE PO (21:37)
--- NOTE | 2018-10-07 22:21 | PC.NURSE ---
1500- assumed care of pt from outgoing shift. Pt awake and alert. looks and states she feels much better today. pt cooperative with nursing staff. will continue to monitor. denies need for pain med at this time. keeps talking about how she only had 1 pain pill today. offered pain meds but pt states as long as I don't move the wrong way I am ok 2100- Pt asked for pain meds but it was too early. explained and educated patient on pain med administration and pt stated i'm not a druggie, I dont understand what the pain meds are and what they do or how much is in which one. I dont understand why you can give me two but cant just give me one now explained a few more times and pt stated ok, Ill wait and take one. went back later and pt stated she felt much better that she had turned and felt better. given other meds per MAR. will continue to monitor. bed alarm on.
[2018-10-08 00:41] VITALS: BP 137/82; PULSE 83; RESP 16; TEMP 37.7; O2SAT 93
--- NOTE | 2018-10-08 01:38 | PC.NURSE ---
Addendum entered by Kami Hernandez R.N. 10/08/18 05:31: Up to bathroom with walker and 1 assist. Needs reminders to keep walker close rather than keeping it at arms length as she walks. Did well with proper body mechanics both getting in and out of bed. Coughing up phlegm; encouraged to CDB due to crackles and earlier temp elevation. Currently afebrile. States pain is 5/10 but still declines pain medication or ice. Original Note: Patient is alert and oriented. Breath sounds with inspiratory crackles at bases; RA sat is 93%. Is running low grade fever of 99.9 so encouraged to use I.S. HRR. Denies nausea. BT present and is passing flatus. Denies dysuria or frequency, but is having some urinary urgency causing some incontinence when up to bathroom. Able to turn self in bed and is up with walker and 1 assist. Dressing to back is partially so able to visualize some gauze with SS drainage. Old drainage noted to steri strip at right lower corner of dressing. Left hip dressing is CDI. States she has some numbness in right foot but is improving. Declines wearing SCD's. Does state pain is 5/10 but declines any intervention at this time. Fall risk score is high and bed alarm is activated.
[2018-10-08] MEDS: FLUTICASONE/SALMETEROL 250/50 14 PUFF DISKUS INH (05:25)
[2018-10-08 05:31] VITALS: BP 106/56; PULSE 75; RESP 16; TEMP 36.3; O2SAT 95
[2018-10-08] MEDS: CELECOXIB 200 MG CAPSULE PO (08:07)
[2018-10-08] MEDS: HYDROCODONE/ACET 5/325 TABLET 1 TAB PO ×2 (08:07→14:38)
[2018-10-08] MEDS: DOCUSATE 100 MG CAPSULE PO (08:07)
[2018-10-08 08:59] VITALS: BP 153/73; PULSE 80; RESP 16; TEMP 36.8; O2SAT 96
[2018-10-08 09:40] VITALS: O2SAT 94
--- NOTE | 2018-10-08 09:50 | OT.IP.TRT ---
Current Diagnoses Other forms of scoliosis, lumbar region (10/06/18) Spondylolisthesis, lumbar region (10/06/18) Spinal stenosis, lumbar region with neurogenic claudication (10/06/18) Surgery Performed Operation Date: 10/06/18 10:15 Actual Procedures p L2-3,L3-4,L4-5,L5-S1 Laminictomy & Ant/Post Instru fusion w/bone graft - Tomer Leyva MD Occupational Therapy Treatment Note M3 OT- IP Subjective and Pain Start: 10/07/18 16:02 Freq: Status: Active Protocol: Document 10/08/18 09:50 PJM (Rec: 10/08/18 15:57 PJM [id number]) OT- Subjective Occupational Therapy Visit Type Type Treatment Note Visit Start Time 08:55 Visit Stop Time 09:50 Total Visit Minutes 55 Notes Pt awake and alert in chair. She would like to shower prior to d/c later today. Occupational Therapy Visit Comments Patient Comments I think I will get some sort of shower chair to use at home . Patient/Caregiver Goals to be able to ride her horse in a few months OT Pain Assessment Pain When Pain Assessed After Treatment Pain Present Pain Present Pain Reported Location Lower Back Intensity 6 Scale Used Numeric (1 - 10) Description Aching Acute Pain Behaviors Facial Grimacing Guarding Management Techniques Distraction Re-positioning Timing of Activity with Medications M4 OT- IP ADL's Start: 10/07/18 16:02 Freq: Status: Active Protocol: Document 10/08/18 09:50 PJM (Rec: 10/08/18 15:57 PJM [id number]) OT [id number] General Evaluation Self-Feeding Ability Independent OT ADL-Grooming General Evaluation Grooming Ability Independent Comments OT Grooming Comments Pt requesting to complete grooming seated in chair due to fatigue after shower; provided education re:body mechanics in standing. Pt states she has high counters at home. OT ADL-Oral Care General Eval Oral Care Ability Independent OT ADL-Dressing General Eval Upper Body Dressing Ability Independent Lower Body Dressing Ability Standby Assistance Areas Needing Assistance Underpants/Brief Pants/Shorts Shoes Assistive Devices Dressing Assistive Devices Breast Buffer Comments OT Dressing Comments Pt needing SBA to don pants with liner that got tangled over feet. Pt states she has easier pants at home and verbalizes understanding of accounts payable associate use to assist PRN. Pt continues to declined sock aid and wears slip on Birkenstocks. OT ADL-Toileting General Evaluation Toileting Ability Independent OT ADL-Bathing Bathing Type Bathing Type Shower General Evaluation Bathing Ability Standby Assistance Devices Bathing Equipment Long Handled Sponge or Computer Technology Instructor Held Shower Sprayer Shower Chair with Arms Grab Bars Comments OT Bathing Comments Pt SBA after set up to shower, but needs min to mod verbal cues to problem solve optimal body mechanics and adapted technics. Recommend OT followup for further education to ensure safety and independence in home setting. Pt states she plans to get shower chair with arms for home use. M5 OT- IP IADL's Start: 10/07/18 16:02 Freq: Status: Active Protocol: Document 10/08/18 09:50 PJM (Rec: 10/08/18 15:57 PJ [id number]) OT-Instrumental Activities of Daily Living Deficits IADL Deficits Identified Deficits Home Safety Awareness Awareness of Need for Assistance at Home Decreased Awareness Ability to Problem Solve Emergency Able to Problem Solve Situations Home Safety Comments Pt tends to underestimate need for assistance at home, but will have friend to assist with pet care, shopping, taking trash out, etc. Medication Management Medication Management No Deficits Identified Money Management Money Management No Deficits Identified Meal Preparation Meal Preparation No Deficits Identified Meal Preparation Comments Provided education re: kitchen mobility with FWW. Recommend OT followup for further education. Thread Grinder Thread Grinder Caregiver Provides Assist Thread Grinder Comments friend to assist until pt able Driving Driving Comments friend to assist until pt able M6 OT- IP Functional Cognition Start: 10/07/18 16:02 Freq: Status: Active Protocol: Document 10/08/18 09:50 PJM (Rec: 10/08/18 15:57 PJM [id number]) Cognitive Factors Limiting Selfcare Function Cognitive Ability Level of Alertness Alert Patient Orientation Name Age Birthday Month Date Year Day of Week Place Situation Ability to Follow Commands Able to Follow One Step Commands Safety Awareness Decreased Ability to Apply Precautions Underestimates Need for Assistance Problem Solving Ability Unable to Identify Errors Needs Assist to Identify Solutions Executive Function Ability Unable to Filter Distractions Cognitive Comments Cognitive Assessment Comments Pt has difficulty focusing on task and distracts self with conversation. She requires min verbal cues to direct attention to task and apply adapted techniques during functional tasks. Pt mildly impulsive at times. M7 OT- IP Mobility and Balance Start: 10/07/18 16:02 Freq: Status: Active Protocol: Document 10/08/18 09:50 PJM (Rec: 10/08/18 15:57 PJM [id number]) OT-Transfer Assessment Sit to and From Stand Sit to and from Stand Contact Guard Assistance Transfers Transfer Ability Standby Assistance Technique Transfer Destination Car Chair Shower Stall Transfer Technique Stand Step Pivot Devices Transfer Assistive Devices Front Wheeled Walker Comments Mobility Comments Pt declines gait belt. Pt having difficulty with hip hinge technique for coming to stand due to not shifting center of gravity forward. Discussed with PAYROLL ASSOCIATE who will see pt later today for further training re: sit to stand technique. OT- Gait Assessment Gait Gait Assistance Required: Standby Assistance Distance (Feet) 20 Assistive Devices Assistive Device Front Wheeled Walker Comments Gait Ability Comments Pt needs verbal cues to problem solve safest method to enter shower OT- Balance Assessment Sitting Balance and Reactions Static Sitting Balance Ability Good Dynamic Sitting Balance Ability Good Standing Balance and Reactions Static Standing Balance Ability Good Dynamic Standing Balance Ability Fair Comments Other Balance Tests/Deviations/Treatment during lower body dressing and : shower M9 OT- IP Assessment and Plan Start: 10/07/18 16:02 Freq: Status: Active Protocol: Document 10/08/18 09:50 PJM (Rec: 10/08/18 15:57 PJM [id number]) OT Summary Assessment and Plan Potential Rehabilitation Potential Good Summary Progress Towards Goals Safe For Discharge Assessment Summary Pt making good daily progress with mobility and self care skills. Pt mildly impulsive and distractible during pt education. She would benefit from OT services to ensure independence/safety with showering and light IADLS in home setting as she lives alone. Frequency of Treatment Frequency Of Treatment Discharge Discharge Recommendations OT Discharge Recommendations Home with Assistance Home Health
--- NOTE | 2018-10-08 10:03 | PM.DS.1 ---
History of Present Illness Date Patient Seen: 10/08/18 Time Patient Seen: 10:03 Chief complaint: Extreme Lat Interbody Fusion/Laminectomy Narrative: Hospital day 3, postop day 2 following L2-3 through L4-5 anterior fusion, cage and posterior fusion; L5-S1 TLIF, cage; L4-5 laminectomy; L2 through L5 S1 bilateral posterior screw fixation by Dr. Leyva. Patient states she is doing better today. Has been up with PT and OT and both feel that she is okay for going home. Patient does live alone. planner scheduler has arranged for [facility] to see patient for PT/OT. Discharge Providers Date of admission: 10/06/18 07:24 Discharge Date: 10/08/18 Primary care physician: Caleb Caban MD Consults: 10/06/18 17:38 Consult to Occupational Therapy Evaluate & Treat Comment: Physician Instructions: Evaluate and treat Consult to Physical Therapy Evaluate & Treat Comment: Physician Instructions: Evaluate and Treat Discharge provider: Yared Uriarte PA-C Summary Discharge Diagnosis: Status post L2-3 through L4-5 anterior fusion, cage and posterior fusion; L4-5 laminectomy; L5-S1 TLIF, cage; L2 through S1 bilateral posterior screw fixation Hospital Course: Patient brought to hospital on 10/06/2018 for above-noted surgery. She remained stable postoperatively. Patient progressed with therapy. Ready for discharge home on postop day 2. She does live alone and will have home health therapy assist her. Status at Discharge Cognitive/behavioral status at discharge: oriented Functional status at discharge: uses cane/walker Overall status at discharge: patient is progressing back to baseline Time Spent with Patient Less than 30 minutes Exam Vital Signs (past 8 hours): - 10/08/18 05:31 10/08/18 08:59 10/08/18 09:40 Temperature 97.4 F L 98.3 F Pulse Rate 75 80 Respiratory Rate 16 16 Blood Pressure 106/56 L 153/73 H Pulse Oximetry 95 96 94 Fraction of Inspired Oxygen 21 Oxygen Delivery Method Room Air Oxygen Flow Rate 0 Narrative Exam Narrative: Alert, oriented in no acute distress lying in bed. Back. Dressing to lumbar area is dry without drainage or inflammation. Legs. No calf pain or swelling. Pulses symmetrical. Good sensation to touch to lower legs. Good strength on foot dorsiflexion plantar flexion. Objective Labs Result Diagrams: 10/07/18 05:43 Discharge Plan Discharge Plan Patient Disposition: Home Health Service Transfer to: [facility] Discharge comment: Discharge home today with home health. [id number] to be done by Dr. Leyva prior to discharge. Discharge Med Rec/Prescriptions Prescriptions: New celecoxib [Celebrex] 200 mg Capsule 200 mg PO BID Qty: 30 RF: 0 acetaminophen 325 mg Tablet 650 mg PO Q6HR PRN (Reason: Pain, Mild (1-3)) Qty: 30 RF: 0 hydrocodone-acetaminophen 5-325 mg Tablet 1 tab PO Q4HR PRN (Reason: Pain, Moderate (4-6)) Qty: 30 RF: 0 Continued fluticasone propion-salmeterol [Advair Diskus] 250-50 mcg/dose Blister With Device 1 inh INHALATION BID RF: 0 albuterol sulfate [Ventolin HFA] 90 mcg/actuation Hfa Aerosol Inhaler 1 - 2 puff INHALATION Q4-6H PRN (Reason: COPD) RF: 0 Follow up/Referrals: Caleb Caban MD [Primary Care Provider] - Provider Discharge Instructions Diet: Diet as Tolerated Activity: Ambulate as tolerated. Use walker as needed. Avoid forceful bending or twisting of lumbar spine. No lifting or carrying more than 5-10 lb. Skin/Wound/Dressing Care Report to your healthcare provider any signs of infection, such as:: chills, fever, night sweats, increased pain, unusual drainage and unusual redness Dressing: Keep CovRsite dressing in place until postop visit. She may shower without direct spray on the dressing. Discharge Data Primary Care Provider: Caleb Caban Attending Provider: Tomer Leyva Admit Date/Time: 10/06/18 07:24 Quality VTE Deep Vein Thrombosis/Pulmonary Embolism Present on Admission: No
--- NOTE | 2018-10-08 10:08 | P.DS_ITS ---
History of Present Illness Date Patient Seen: 10/08/18 Time Patient Seen: 10:03 Chief complaint: Extreme Lat Interbody Fusion/Laminectomy Narrative: Hospital day 3, postop day 2 following L2-3 through L4-5 anterior fusion, cage and posterior fusion; L5-S1 TLIF, cage; L4-5 laminectomy; L2 th rough L5 S1 bilateral posterior screw fixation by Dr. Leyva. Patient states she is doing better today. Has been up with PT and OT and both feel that she is okay for going home. Patient does live alone. conference planner has arranged for [facility] to see patient for PT/OT. Discharge Providers Date of admission: 10/06/18 07:24 Discharge Date: 10/08/18 Primary care physician: Caleb Caban MD Consults: 10/06/18 17:38 Consult to Occupational Therapy Evaluate & Treat Comment: Physician Instructions: Evaluate and treat Consult to Physical Therapy Evaluate & Treat Comment: Physician Instructions: Evaluate and Treat Discharge provider: Yared Uriarte PA-C Summary Discharge Diagnosis: Status post L2-3 through L4-5 anterior fusion, cage and posterior fusion; L4-5 laminectomy; L5-S1 TLIF, cage; L2 through S1 bilateral posterior screw fixation Hospital Course: Patient brought to hospital on 10/06/2018 for above-noted surgery. She remained stable postoperatively. Patient progressed with therapy. Ready for discharge home on postop day 2. She does live alone and will have home health therapy assist her. Status at Discharge Cognitive/behavioral status at discharge: oriented Functional status at discharge: uses cane/walker Overall status at discharge: patient is progressing back to baseline Time Spent with Patient Less than 30 minutes Exam Vital Signs (past 8 hours): - 10/08/18 05:31 10/08/18 08:59 10/08/18 09:40 Temperature 97.4 F L 98.3 F Pulse Rate 75 80 Respiratory Rate 16 16 Blood Pressure 106/56 L 153/73 H Pulse Oximetry 95 96 94 Fraction of Inspired Oxygen 21 Oxygen Delivery Method Room Air Oxygen Flow Rate 0 Narrative Exam Narrative: Alert, oriented in no acute distress lying in bed. Back. Dressing to lumbar area is dry without drainage or inflammation. Legs. No calf pain or swelling. Pulses symmetrical. Good sensation to touch to lower legs. Good strength on foot dorsiflexion plantar flexion. Objective Labs Result Diagrams: 10/07/18 05:43 Discharge Plan Discharge Plan Patient Disposition: Home Health Service Transfer to: [facility] Discharge comment: Discharge home today with home health. [id number] to be done by Dr. Leyva prior to discharge. Discharge Med Rec/Prescriptions Prescriptions: New celecoxib [Celebrex] 200 mg Capsule 200 mg PO BID Qty: 30 RF: 0 acetaminophen 325 mg Tablet 650 mg PO Q6HR PRN (Reason: Pain, Mild (1-3)) Qty: 30 RF: 0 hydrocodone-acetaminophen 5-325 mg Tablet 1 tab PO Q4HR PRN (Reason: Pain, Moderate (4-6)) Qty: 30 RF: 0 Continued fluticasone propion-salmeterol [Advair Diskus] 250-50 mcg/dose Blister With Device 1 inh INHALATION BID RF: 0 albuterol sulfate [Ventolin HFA] 90 mcg/actuation Hfa Aerosol Inhaler 1 - 2 puff INHALATION Q4-6H PRN (Reason: COPD) RF: 0 Follow up/Referrals: Caleb Caban MD [Primary Care Provider] - Provider Discharge Instructions Diet: Diet as Tolerated Activity: Ambulate as tolerated. Use walker as needed. Avoid forceful bending or twisting of lumbar spine. No lifting or carrying more than 5-10 lb. Skin/Wound/Dressing Care Report to your healthcare provider any signs of infection, such as:: chills, fever, night sweats, increased pain, unusual drainage and unusual redness Dressing: Keep CovRsite dressing in place until postop visit. She may shower without direct spray on the dressing. Discharge Data Primary Care Provider: Caleb Caban Attending Provider: Tomer Leyva Admit Date/Time: 10/06/18 07:24 Quality VTE Deep Vein Thrombosis/Pulmonary Embolism Present on Admission: No
--- NOTE | 2018-10-08 10:25 | PT.IPTN ---
Current Diagnoses Other forms of scoliosis, lumbar region (10/06/18) Spondylolisthesis, lumbar region (10/06/18) Spinal stenosis, lumbar region with neurogenic claudication (10/06/18) Surgery Performed Operation Date: 10/06/18 10:15 Actual Procedures p L2-3,L3-4,L4-5,L5-S1 Laminictomy & Ant/Post Instru fusion w/bone graft - Tomer Leyva MD Physical Therapy Treatment Note M2 PT-IP Current Condition Start: 10/07/18 12:36 Freq: NEEDED Status: Active Protocol: Document 10/07/18 10:10 (Rec: 10/07/18 12:58 [email or web address]) Physical Therapy Current Condition Current Condition Evaluation Date 10/07/18 Treatment Diagnosis L2-L5 XLIF, L5-S1 TLIF, imparied gait and activity tolerance Onset Date 10/06/18 Precautions Lumbar Precautions Log Roll No Twisting Limit Bending Lifting Restriction of 10 lbs Gait Belt above Incisional Area Weight Bearing Status Weight Bearing Status Weight Bear as Tolerated M3 PT-IP Subjective Start: 10/07/18 12:36 Freq: NEEDED Status: Active Protocol: Document 10/08/18 10:25 GGD (Rec: 10/08/18 11:23 GGD [id number]) Subjective Physical Therapy Visit Type Type Treatment Note Visit Start Time 10:00 Visit Stop Time 10:25 Total Visit Minutes 25 Number of AUTO SLIP COVER INSTALLER Visits 2 Physical Therapy Visit Comments Patient Comments Pt would like to walk. Therapy Pain Assessment Pain When Pain Assessed During Mobility Pain Present Pain Present Pain Reported M4 PT-IP Mobility and Gait Start: 10/07/18 12:36 Freq: NEEDED Status: Active Protocol: Document 10/08/18 10:25 GGD (Rec: 10/08/18 11:23 GGD [id number]) PT-Transfer Assessment Sit to and From Stand Sit to and from Stand Contact Guard Assistance Minimal Assistance Use of Upper Extremities Equipment Transfer Assistive Device Gait Belt Front Wheeled Walker Orthotic/Prosthetic Devices or Brace: No Transfers Transfer Destination Chair Transfer Ability Level of Assist Minimal Assistance Comments Mobility Comments Pt need mod cues for sit to stand techinque. Sit <> stand x 4 Gait Assessment Gait Gait Assistance Required: Standby Assistance Distance (Feet) 300 Able to Maintain Weight Bearing Status Yes During Gait Assistive Devices Assistive Device Gait Belt Front Wheeled Walker Orthotic/Prosthetic Devices or Brace: No Gait Deviations General Gait Pattern Decreased Stride Length Decreased Feet Clearance Step-to Gait Factors Limiting Gait Function Factors Limiting Gait Function Decreased Activity Tolerance Decreased Strength Limited Range of Motion Pain Poor Balance Respiratory Distress M5 PT-IP Objective Assessments Start: 10/07/18 12:36 Freq: NEEDED Status: Active Protocol: Document 10/07/18 10:10 HH (Rec: 10/07/18 12:58 [email or web address]) Orientation Orientation/Cognition Level of Alertness Alert Orientation Name Age Birthday Month Date Year Day of Week Place Situation Language Function Ability No Deficits Noted Safety Awareness Understands Safety Issues Memory Description No Deficits Noted Gross Range of Motion Upper Extremity ROM Assessment Within Functional Limits Lower Extremity ROM Assessment Left Impaired Impairments hip flexion ~40-50 degrees Strength Upper Extremity Strength Assessment Within Functional Limits Lower Extremity Strength Assessment Left Impaired Hip 3/5 Knee 4/5 Ankle 4/5 Coordination Assessment Gross Coordination Gross Coordination WNL Sensation Assessment Sensation Gross Sensation WNL Right LE Impaired Light Touch Impaired Proprioception (Position) Intact Sensation Description Numbness Comments Sensation Comments pt stated slight decreased sensitivity to LT on R lateral foot Muscle Tone Muscle Tone WNL Yes M6 PT-IP Treatment Start: 10/07/18 12:36 Freq: NEEDED Status: Active Protocol: Document 10/08/18 10:25 GGD (Rec: 10/08/18 11:23 GGD [id number]) Physical Therapy Treatment Education Education Provided Precautions Safety M7 PT-IP Assessment and Plan Start: 10/07/18 12:36 Freq: NEEDED Status: Active Protocol: Document 10/08/18 10:25 GGD (Rec: 10/08/18 11:23 GGD [id number]) PT Summary Assessment and Plan Summary Assessment Summary Pt improving with mobility. She was able to improve with sit to stand technique with cues. She was safe and stable with gait with FWW. Pt safe for home D/c when medically stable. Frequency of Treatment Frequency Of Treatment Twice a Day Treatment Plan Physical Therapy Treatment Plan Bed Mobility Training Transfer Training Gait Training Therapeutic Exercise Balance Retraining Post Op Education Discharge Planning Hot or Cold Pack Recommendations To Nursing Amount of Assist Needed 1 Person Assist Discharge Recommendations PT Discharge Recommendations Home with Assistance Home Health
--- NOTE | 2018-10-08 11:13 | CM.DPC ---
DCP Discharge Home with HH Per PA, pt medically stable to d/c home with HH today. MD to see pt briefly around 1300 and to sign the F2F for HH. SW confirmed with [facility] that they can open the pt to services and are aware pt likely d/c home today. SW met bedside with pt and explained role again and pt remembered this SW from yesterday and confirmed that she is agreeable with d/c home today with [facility]. SW provided the [facility] brochure and also discussed pt's Medicare Rights and pt acknowledged understanding and signed her Medicare Message. SW to fax pt's d/c summ, signed F2F and MD orders when available to [facility]. Plan: Patient to d/c home later this afternoon after MD does final check on the pt with [facility] to follow after d/c. Gabriela Dodge MSW
[2018-10-08 11:59] VITALS: BP 146/85; PULSE 91; RESP 19; TEMP 36.9; O2SAT 93
--- NOTE | 2018-10-08 14:30 | PT.IPTN ---
Current Diagnoses Other forms of scoliosis, lumbar region (10/06/18) Spondylolisthesis, lumbar region (10/06/18) Spinal stenosis, lumbar region with neurogenic claudication (10/06/18) Surgery Performed Operation Date: 10/06/18 10:15 Actual Procedures p L2-3,L3-4,L4-5,L5-S1 Laminictomy & Ant/Post Instru fusion w/bone graft - Tomer Leyva MD Physical Therapy Treatment Note M2 PT-IP Current Condition Start: 10/07/18 12:36 Freq: NEEDED Status: Active Protocol: Document 10/07/18 10:10 (Rec: 10/07/18 12:58 [email or web address]) Physical Therapy Current Condition Current Condition Evaluation Date 10/07/18 Treatment Diagnosis L2-L5 XLIF, L5-S1 TLIF, imparied gait and activity tolerance Onset Date 10/06/18 Precautions Lumbar Precautions Log Roll No Twisting Limit Bending Lifting Restriction of 10 lbs Gait Belt above Incisional Area Weight Bearing Status Weight Bearing Status Weight Bear as Tolerated M3 PT-IP Subjective Start: 10/07/18 12:36 Freq: NEEDED Status: Active Protocol: Document 10/08/18 14:30 GGD (Rec: 10/08/18 14:48 GGD [id number]) Subjective Physical Therapy Visit Type Type Treatment Note Visit Start Time 14:15 Visit Stop Time 14:30 Total Visit Minutes 15 Number of COUNSELLORS Visits 3 Physical Therapy Visit Comments Patient Comments Pt want's to go back to bed. Therapy Pain Assessment Pain Present Pain Present Denied Pain M4 PT-IP Mobility and Gait Start: 10/07/18 12:36 Freq: NEEDED Status: Active Protocol: Document 10/08/18 14:30 GGD (Rec: 10/08/18 14:48 GGD [id number]) PT-Bed Mobility Assessment Rolling Type of Rolling Log Rolling Roll to Left Level of Assist Standby Assistance Sit to Supine Sit to Supine Contact Guard Assistance Bedrails Scooting Scooting to Edge of Bed Contact Guard Assistance Scooting Up and Down in Bed Contact Guard Assistance PT-Transfer Assessment Sit to and From Stand Sit to and from Stand Contact Guard Assistance Use of Upper Extremities Equipment Transfer Assistive Device Gait Belt Front Wheeled Walker Transfers Transfer Destination Bed Transfer Ability Level of Assist Contact Guard Assistance Comments Mobility Comments Pt need cues for sit to stand and log roll technique. Gait Assessment Gait Gait Assistance Required: Standby Assistance Distance (Feet) 10 Able to Maintain Weight Bearing Status Yes During Gait Assistive Devices Assistive Device Gait Belt Front Wheeled Walker Orthotic/Prosthetic Devices or Brace: No Gait Deviations General Gait Pattern Decreased Stride Length Decreased Feet Clearance Step-to Gait Factors Limiting Gait Function Factors Limiting Gait Function Decreased Activity Tolerance Decreased Strength Limited Range of Motion Pain Poor Balance Respiratory Distress M5 PT-IP Objective Assessments Start: 10/07/18 12:36 Freq: NEEDED Status: Active Protocol: Document 10/07/18 10:10 (Rec: 10/07/18 12:58 [email or web address]) Orientation Orientation/Cognition Level of Alertness Alert Orientation Name Age Birthday Month Date Year Day of Week Place Situation Language Function Ability No Deficits Noted Safety Awareness Understands Safety Issues Memory Description No Deficits Noted Gross Range of Motion Upper Extremity ROM Assessment Within Functional Limits Lower Extremity ROM Assessment Left Impaired Impairments hip flexion ~40-50 degrees Strength Upper Extremity Strength Assessment Within Functional Limits Lower Extremity Strength Assessment Left Impaired Hip 3/5 Knee 4/5 Ankle 4/5 Coordination Assessment Gross Coordination Gross Coordination WNL Sensation Assessment Sensation Gross Sensation WNL Right LE Impaired Light Touch Impaired Proprioception (Position) Intact Sensation Description Numbness Comments Sensation Comments pt stated slight decreased sensitivity to LT on R lateral foot Muscle Tone Muscle Tone WNL Yes M6 PT-IP Treatment Start: 10/07/18 12:36 Freq: NEEDED Status: Active Protocol: Document 10/08/18 14:30 GGD (Rec: 10/08/18 14:48 GGD [id number]) Physical Therapy Treatment Education Education Provided Precautions Safety M7 PT-IP Assessment and Plan Start: 10/07/18 12:36 Freq: NEEDED Status: Active Protocol: Document 10/08/18 14:30 GGD (Rec: 10/08/18 14:48 GGD [id number]) PT Summary Assessment and Plan Summary Assessment Summary Pt needs cues for safety and mobility technique. She is implusive, but able to be safe with cues. Frequency of Treatment Frequency Of Treatment Twice a Day Treatment Plan Physical Therapy Treatment Plan Bed Mobility Training Transfer Training Gait Training Therapeutic Exercise Balance Retraining Post Op Education Discharge Planning Hot or Cold Pack Recommendations To Nursing Amount of Assist Needed 1 Person Assist Discharge Recommendations PT Discharge Recommendations Home with Assistance Home Health
--- NOTE | 2018-10-10 14:33 | CM.DPNOTE ---
Received call from [facility] Friday stating they had not received the signed F2F to start HH Services for this pt. Reviewed notes, all necessary HH documentation and ppk had been faxed, signed F2F placed in medical records after faxed. 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 Medical records was unable to do this Friday10.09.18. Updated rep at [facility] today, she explained they would try to secure signed F2F from medical records. Meanwhile, pt was on the schedule to be seen [id number]. MONET Cohn
== END 2018-10-08 14:30 | disposition home health service (06) | DRG 455 ==
PROVIDERS: Admitting Provider Orthopaedic Surgery; PCP Internal Medicine Cardiovascular Disease; Visit Provider Orthopaedic Surgery
PROC: 0SG00A0 Fusion of Lumbar Vertebral Joint with Interbody Fusion Device, Anterior Approach, Anterior Column, Open Approach (ICD-10-PCS; CPT 22558; principal; 2018-10-06 10:15)
DX: M48.062 Spinal stenosis, lumbar region with neurogenic claudication (principal); M43.16 Spondylolisthesis, lumbar region; M41.86 Other forms of scoliosis, lumbar region; J44.9 Chronic obstructive pulmonary disease, unspecified; M41.26 Other idiopathic scoliosis, lumbar region
CPT/HCPCS: 36415; 72100; 76000; 85014; 85018; 94762; 97116; 97162; 97165; 97530; 97535; C1776; C1788; J0330; J0595; J0690; J1170; J2060; J2250; J2274; J2405; J2704; J3010; J3410; J7613